=== PATIENT | male | born 1950 | race Caucasian/White ===

== ENCOUNTER → 2017-05-30 | Outpatient (CLI) | payer OTHER, BC ==
[~2017-05-30] MED LIST: ASPIR 8181 MG PO; FLOMAX0.4 MG PO; KEFLEX500 MG PO; PRAVACHOL40 MG PO
== END ==
LOC: RAD 11:39
DX: M50.321 Other cervical disc degeneration at C4-C5 level (principal); M50.322 Other cervical disc degeneration at C5-C6 level

== ENCOUNTER → 2017-07-05 | Outpatient (CLI) | payer OTHER, BC | LOC: MRI 09:48 | DX: M47.892 Other spondylosis, cervical region (principal); M50.322 Other cervical disc degeneration at C5-C6 level ==

== ENCOUNTER → 2018-03-16 | Outpatient (CLI) | payer OTHER, BC ==
[~2018-03-16] VITALS: Ht 182.9 cm; Wt 86.2 kg
[~2018-03-16] MED LIST changes: +TYLENOL EXTRA500 MG PO
--- NOTE | ~2018-03-16 | PATH ---
[facility] [address] [address] PATHOLOGY RPT PROCEDURE Name: ARMANI HARRIS Room #: REG DERRELL Rocío#: [id number] Admission: 03/16/18 Date of : 52 Discharge: Report #: [id number] Path Case #: [id number] [facility] Accession Number: [id number] . 01 Material submitted: . PART A: BX OF GASTRITIS PART B: BX OF DISTAL ESOPHAGUS . 01 Clinical history: . Reflux gastritis, esophagitis . 02 Diagnosis: A. "BX of gastritis", biopsy: - Gastric mucosa with mild reactive changes, minimal chronic inflammation, and focal intestinal type epithelium; no dysplasia seen (see comment). - Negative H. pylori immunohistochemical stain (block A1); control reacted appropriately. . B. "BX of distal esophagus r/o Syed's", biopsy: - Esophageal squamous mucosa and gastric cardiac type mucosa with mild reactive changes, minimal chronic inflammation and rare scattered goblet cells; no dysplasia seen (see comment). QT/03/19/2018 . 02 Comment: Within specimen A, the focal intestinal type epithelium may represent focal intestinal metaplasia in the setting of mild chronic gastritis or a transition to small bowel/duodenal mucosa. . Within specimen B, the rare scattered goblet cells may represent partially sampled or an evolving segment of intestinal metaplasia. No well-formed intestinal metaplasia is identified. Clinica and endoscopic correlation is required. (CLW:duke; 03/19/2018) . 02 Electronically signed: . Hanny Bales MD, Pathologist NPI- [id number] . 01 Gross description: . A. The specimen is received in formalin, labeled "Armani Harris BX of gastritis" and consists of 2 fragments of christina soft tissue measuring 0.4 x 0.3 x 0.1 cm and 0.5 x 0.3 x 0.1 cm. They are entirely submitted in A1. . B. The specimen is received in formalin, labeled "Armani Harris BX distal esophagus rule out Syed's" and consists of multiple fragments of [facility] [address] [place] [address] PATHOLOGY RPT PROCEDURE Name: ARMANI HARRIS NICOLE Room #: REG DERRELL Alford#: [id number] Admission: 03/16/18 Date of : 52 Discharge: Report #: [id number] Path Case #: [id number] christina soft tissue measuring 1.1 x 0.6 x 0.2 cm in aggregate. They are entirely submitted in B1. (SDY; 03/16/2018) SYU/SYU . 02 Pathologist provided ICD-10: K29.50, K20.9 . 02 CPT . 387806, 481604, M02578 Performed at: [address], [place], [place] [id number] MD Clint Thomson MD Phone: [phone] Performed at: [address] [id number] MD Ashlyn Martinez MD Phone: [phone]
--- NOTE | ~2018-03-16 | P ---
[facility] [place] [place] [address] PROCEDURE REPORT Name: RADHA ARTEAGA Room #: REG DERRELL Ines#: [id number] Admission: 03/16/18 Attend Phys: Sinan Steinberg MD Discharge: Date of : 52 Report #: [id number] THIS REPORT FOR: //name// CC: Sinan Hernandez BRIEF HISTORY: The patient is a 67-year-old male who has had recent chest discomfort, was thought to be related reflux disease. He was treated empirically with omeprazole as an outpatient and symptoms have not resolved. PREOPERATIVE DIAGNOSIS: Reflux, not resolved with empiric therapy. POSTOPERATIVE DIAGNOSES: 1. Grade A esophagitis, healing. 2. Mild diffuse gastritis. MEDICATIONS: Deep sedation with propofol per anesthesia. SPECIMEN: 1. Biopsy of the gastric mucosa. 2. Biopsy of GE junction, rule out Syed esophagus. ESTIMATED BLOOD LOSS: 3 mL. PROCEDURE: EGD with biopsy. FINDINGS: Prior to propofol sedation, procedure of upper endoscopy discussed with the patient as well as potential risks and its complications. He indicates he understands and desires to proceed. With the patient in left lateral decubitus position, the Olympus video endoscope was inserted in the cervical esophagus under direct vision without difficulty. Examination of this organ through its entire length revealed normal esophageal mucosa down the squamocolumnar junction. At the squamocolumnar junction, there appeared to be a single 5-6 mm column, which may represent healing esophagitis. I cannot entirely exclude Syed. The squamocolumnar junction was slightly irregular. There may be a focal area of Syed mucosa and Biopsies were obtained. No strictures or masses were seen. A significant hiatus hernia was not seen. Scope was advanced in the stomach, was examined on end view as well as retroflexed views. There was erythema in the antrum, but no ulcers or erosions were seen. The pylorus was unremarkable. Examination of the proximal stomach on end view as well as retroflexed views revealed normal-appearing mucosa. No mass lesions were seen in the cardia of the stomach. The pylorus, duodenal bulb, and postbulbar duodenal sweep were inspected and noted to be within normal limits. At that point, the scope was slowly withdrawn and careful circumferential views confirmed the above finding and the patient tolerated the [address] [address] PROCEDURE REPORT Name: RADHA ARTEAGA Room #: REG [facility] Rocío#: [id number] Admission: 03/16/18 Attend Phys: Sinan Steinberg MD Discharge: Date of : 52 Report #: [id number] procedure well. CONDITION OF THE PATIENT UPON DISCHARGE: Following the procedure, the patient was drowsy, arousal and conversant and will be discharged home when fully ambulatory. INSTRUCTIONS TO THE PATIENT AND FAMILY AT THE TIME OF DISCHARGE: He has what appears to be healing esophagitis. I cannot entirely exclude Syed and biopsies were obtained. We will follow up on biopsies and make further recommendations. At this point in time, since he did not respond to empiric Prilosec treatment, we will have him use pantoprazole 40 mg twice daily for about 6-8 weeks. If he does well, he may reduce the dose of pantoprazole as tolerated once daily or less than 1 daily to control his symptoms. If he does not have complete resolution of symptoms, he should return to see me in followup in the office. He will otherwise return to the care of Dr. Tony Hernandez. <ELECTRONICALLY SIGNED> By: Sinan Steinberg MD 03/19/18 1100 0755 1448 Sinan Steinberg MD /nt
== END | disposition home or self-care (01) ==
LOC: GI 06:27
DX: K29.50 Unspecified chronic gastritis without bleeding (principal); K21.0 Gastro-esophageal reflux disease with esophagitis; Z79.899 Other long term (current) drug therapy; E78.5 Hyperlipidemia, unspecified; Z98.890 Other specified postprocedural states
CPT/HCPCS: 62110; 62900

== ENCOUNTER → 2019-02-06 | Outpatient (CLI) | payer OTHER, BC ==
[~2019-02-06] VITALS: Ht 182.9 cm; Wt 87.1 kg
[~2019-02-06] MED LIST changes: +MEDROLDOSEPACK PO; +PROTONIX40 M1 PO
--- NOTE | ~2019-02-06 | HPC ---
[facility] [address] [address] PAIN MANAGEMENT CONSULTATION Name: RADHA ARTEAGA Room #: REG DERRELL Rocío#: [id number] Admission: 02/06/19 ������������������ Attend Phys: Camacho Ahuja MD Discharge: ������������������ Date of : 52 Report #: [id number] THIS REPORT FOR: //name// CC: Camacho Hernandez DATE OF SERVICE: 02/06/2019 CHIEF COMPLAINT: Neck pain and headache. HISTORY: The patient is a 68-year-old gentleman, who has been referred to the pain clinic for evaluation. The patient states that he has been experiencing some increased pain in the neck area, it involves his back. He was seen in [place]. Because of the neck/headache, he was evaluated. He states that he underwent a study of his carotids. There were no significant findings. The patient had a history of difficulty remembering his 's name and a few other things a few years ago. It was thought that the patient may have had a TIA, but no real findings were confirmed. He states that he likes to run. After a run, he has noted sometimes that his pain becomes more problematic involving the back of his neck and has been of some concern to him and to his . He was told to take a Tylenol. He has noticed that Tylenol use has been helpful in decreasing his pain. His pain resolved after using Tylenol, but he still does have some muscle soreness that remains at this juncture. He rates his pain as 1-2/10. Pain is exacerbated when he is lying down. CURRENT MEDICATIONS: Acetaminophen 500 mg p.r.n. headache, Protonix 40 mg, and Pravachol 40 mg. ALLERGIES: No known drug allergies. PAIN CLINIC ASSESSMENT AND PQRS: 1. History of osteoarthritis. The patient has some arthritic changes in his neck as revealed by a cervical x-ray dated 05/30/2017, which showed degenerative disk disease at C4-C5 and C5-C6 with mild disk space narrowing. The patient is not being treated for rheumatoid arthritis. 2. Pain intensity is 1-2/10. 3. Fall risk. The patient has not fallen in the last 3 months. 4. Blood thinner. The patient is not on a blood thinning medication. 5. Hypertension. The patient is not being treated for hypertension. 6. Opioids greater than 6 weeks. 7. Risk assessment tool, low for opioid use. 8. Functional assessment tool is low. 9. Recreational drug use. The patient denies use of recreational drugs. 10. Tobacco. The patient has never smoked. 11. Alcohol. The patient drinks maybe 1 alcoholic beverage daily. [address] [address] PAIN MANAGEMENT CONSULTATION Name: RADHA ARTEAGA EDGARD [id number] Admission: 02/06/19 ������������������ Attend Phys: Camacho Ahuja MD Discharge: ������������������ Date of : 52 Report #: [id number] PHYSICAL EXAMINATION: GENERAL: The patient is a well-developed, well-nourished white gentleman. He appears his stated age. He is alert and oriented x 3. His affect is appropriate. Speech is fluent. Height is 6 feet 0 inches, weight is 192 pounds, and BMI is 26.0. VITAL SIGNS: Blood pressure is 132/80, pulse is 59, respiratory rate is 16, and room air saturation is 95%. HEENT: Normocephalic, atraumatic. Extraocular eye muscles intact. The patient's is present. NECK: Without adenopathy or JVD. HEART: Regular rate. ABDOMEN: Nontender. Bowel sounds present. EXTREMITIES: Lower extremity muscle strength is judged to be 5/5 for the major muscle groups in the upper extremity. The patient's upper extremity muscle strength is 5/5. The patient notes some soreness in the posterior portion of his neck and in the area of the scapula. IMPRESSION: 1. Neck pain with development of headache, ruled out as a vascular problem with carotid visualization of the vascular system in [place]. 2. Gastroesophageal reflux disease. 3. Benign prostatic hypertrophy. 4. Hypercholesterolemia. RECOMMENDATIONS: We have discussed treatment options with the patient and his . At this juncture, things seem to be going well. He has had a headache, which after taking Tylenol seems to resolve. It is difficult to understand the reasoning for his headaches. At this juncture, it is somewhat episodic. I am not sure that putting on a long-term medication might not cause more problems than good. We have explained to the patient that sometimes runners have found that if they take a nonsteroidal anti-inflammatory medication prior to their run that they have less muscle soreness at the end. The patient could conceivably take Tylenol prior to his run; hopefully, this would decrease the likelihood of that he would have a headache. He does have some GI problems, so he could try a nonsteroidal anti-inflammatory medication as his stomach would tolerate. We will provide the patient with a Medrol Dosepak. Should he start to note some headache discomfort, he could consider trying use of the Medrol Dosepak. It seems like the episodes of pain have been difficult to predict. He will call us if he has any concerns. We would like to thank you for letting to us participate in his care. We hope he continues to improve. ��������������������������������������������� ���������������������������������������� By: ��������������������������������������������� 1830 0059 Camacho Ahuja MD /CINTHYA
[2019-02-06 09:46] VITALS: BP 132/80
--- NOTE | 2019-02-06 09:52 | NUR ---
Pain Clinic Assessment: 1. History of Osteoarthritis: History of Rheumatoid Arthritis: 2. Height: 6 ft. 0 in. 182.9 cm. Weight: 192.0 lb. oz. 87.091 kg. Patient's BMI: 26.0 3. Vital Signs: BP: 132/80 Pulse: 59 Resp: 16 Temp: 02 Sat: 59 ECG Mon: 4. Pain Intensity: 1-2 5. Fall Risk: Dizziness: N Needs help standing or walking: N Fallen in the last 3 months: N Fall risk comments: 6. Patient on Blood Thinner: None 7. History of Hypertension: N 8. Opioid Therapy greater than 6 weeks: N Opiate Contract Signed: 9. Risk Assessment Tool Provided: 10. Functional Assessment Tool: 11. Recreational Drug Use: Never Drug Type: Tobacco Use: Never Smoker Tobacco Type: Amount or Packs/day: How Many Years: Alcohol Use: Yes Frequency: Daily Quant: 1
== END ==
LOC: PAIN 06:50
DX: N40.0 Benign prostatic hyperplasia without lower urinary tract symptoms (principal); E78.00 Pure hypercholesterolemia, unspecified; K21.9 Gastro-esophageal reflux disease without esophagitis; M54.2 Cervicalgia; R51 Headache; Z79.899 Other long term (current) drug therapy

== ENCOUNTER → 2019-03-14 | Outpatient (CLI) | payer OTHER, BC ==
--- NOTE | 2019-03-15 16:39 | P ---
[facility] [address] [address] [place] [address] PROCEDURE REPORT Name: RADHA ARTEAGA Room #: REG DERRELL InesJenny#: [id number] Admission: 03/14/19 ������������������ Attend Phys: Sinan Steinberg MD Discharge: ������������������ Date of : 51 Report #: [id number] THIS REPORT FOR: //name// CC: Sinan Hernandez MD BRIEF HISTORY: The patient is a 68-year-old male known to me with a history of reflux disease and esophagitis. He was seen about a year ago. There was a question of Syed esophagus versus esophagitis in the distal esophagus and biopsies revealed some goblet cells on the biopsy, raising the possibility of Syed esophagus. In addition, he also had biopsies of gastritis, which were negative for H. pylori. However, there was a questionable focal intestinal metaplasia on those biopsies as well. There was question whether or not the gastric biopsies represented true intestinal metaplasia or simply transition from gastric to duodenal mucosa in the prepyloric area. He was treated with twice-daily pantoprazole and subsequently had resolution of symptoms, is now taking 1 daily and has no reflux symptoms or dysphagia symptoms at this time. PREOPERATIVE DIAGNOSES: Questionable prior history of Syed's and questionable prior history of gastrointestinal metaplasia. POSTOPERATIVE DIAGNOSES: 1. Tvwx-xg-sbnaugrk diffuse gastritis. 2. Unremarkable appearing gastroesophageal junction. MEDICATIONS: Deep sedation with propofol per anesthesia. SPECIMENS: 1. Biopsies of antrum. 2. Biopsies of body and fundus of stomach. 3. Biopsies of GE junction. ESTIMATED BLOOD LOSS: 3 mL. PROCEDURE: EGD with biopsy. FINDINGS: Prior to propofol sedation, procedure of upper endoscopy was reviewed with the patient as well as potential risks and its complications. He indicates he understands and desires to proceed. PROCEDURE: With the patient in left lateral decubitus position, the Olympus video endoscope was inserted in the cervical esophagus under direct vision without difficulty. Examination of this organ through its entire length revealed normal esophageal mucosa down the squamocolumnar junction. Squamocolumnar junction was carefully inspected. First of all, there is no evidence of erosive changes and his previously noted esophagitis has cleared. [facility] [address] [place] [address] PROCEDURE REPORT Name: RADHA ARTEAGA Room #: REG [facility] Moni.#: [id number] Admission: 03/14/19 ������������������ Attend Phys: Sinan Steinberg MD Discharge: ������������������ Date of : 51 Report #: [id number] The squamocolumnar junction appeared unremarkable. It appeared to be right at the top of the gastric folds. The squamocolumnar junction was at 42 cm, which would be an expected location in a 6 foot man. Narrow banded imaging and white light imaging were used and no mucosal abnormalities were seen. I suspect that previous biopsies were distorted by esophagitis. The squamocolumnar junction looks fairly typical today and is not overly worrisome with regards to Syed mucosa. However, in view of the previous concerns, biopsies were obtained right at the GE junction. Scope was advanced into the stomach, was examined on end view as well as retroflexed views. The mucosa was intact without ulcerations or erosive changes. There was streaky linear erythema in the antrum. There was mild nodularity to the mucosa in the body and the fundus of the stomach. No mass lesions were seen. Upon retroflexion, no mass lesions were seen in the cardia. Multiple biopsies were obtained of the antrum. Care was taken not to obtain biopsies too close to the pylorus. Multiple biopsies were also obtained of the body and the fundus. The pylorus was unremarkable. Duodenal bulb was unremarkable. Postbulbar duodenal sweep down to third portion was unremarkable. At that point, the scope was slowly withdrawn and careful circumferential views confirmed the above findings. The patient tolerated the procedure well. CONDITION OF THE PATIENT UPON DISCHARGE: Following procedure, the patient drowsy, aroused, conversant and will be discharged home when fully ambulatory. INSTRUCTIONS TO THE PATIENT AND FAMILY AT THE TIME OF DISCHARGE: The patient with questionably abnormal biopsies 1 year ago regarding gastrointestinal metaplasia and the possibility of Syed esophagus. Findings today are not overly impressive with regards to either diagnosis. We follow up on biopsies obtained today. In the meantime, the patient has had resolution of his reflux symptoms and is currently taking one pantoprazole daily. We will discuss further with the patient and advise him to try to reduce to the lowest dose possible to control symptoms. Await biopsies and we will make further recommendations. ��������������������������������������������� <ELECTRONICALLY SIGNED> ���������������������������������������� By: Sinan Steinberg MD ��������������������������������������������� 03/15/19 1639 0821 0926 Sinan Steinberg MD /ольга
--- NOTE | 2019-03-18 17:05 | PATH ---
[facility] [address] [address] PATHOLOGY RPT PROCEDURE Name: RADHA HARRIS Room #: REG DERRELL [place].#: [id number] ������������������ Admission: 03/14/19 ������������������ Date of : 52 Discharge: Report #: [id number] Path Case #: [id number] [facility] Accession Number: [id number] . 01 Material submitted: . PART A: stomach - BX ANTRUM R/O INTESTENAL METAPLASIA OF STOMACH PART B: stomach - BX OF BODY OF FUNDUS R/O INTESTINAL METAPLASIA OF STOMACH. Modifiers: body, fundus PART C: esophagus - BX GE JUNCTION QUESTIONABLE PRIOR HX BARRETTS R/O BARRETTS . 01 Clinical history: . Preop DX: Questionable hx Barretts; questionable hx intestinal metaplasia of stomach, SEE PREVIOUS BIOPSIES Postop DX: Gastritis A. R/O intestinal metaplasia B. R/O intestinal metaplasia C. R/O Barretts . 02 Diagnosis: A. Gastric mucosa, antrum rule out intestinal metaplasia of stomach, endoscopic biopsy: - Moderate reactive gastropathy. - Negative for intestinal metaplasia or atrophy. - Negative for Helicobacter pylori (properly controlled immunohistochemical stain performed). . B. Gastric mucosa, body of stomach rule out intestinal metaplasia of stomach, endoscopic biopsy: - Mild chronic inflammation along with reactive changes. - Negative for intestinal metaplasia or atrophy. - Negative for Helicobacter pylori (properly controlled immunohistochemical stain performed). . C. Gastroesophageal mucosa, GE junction, endoscopic biopsy: - Gastric cardia-type mucosa with moderate chronic inflammation. - Negative for intestinal metaplasia or atrophy. - Squamous mucosa with mild esophagitis. . 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 02 Electronically signed: . Ashlyn Martinez MD, Pathologist NPI- [id number] . 01 Gross description: . [address] [address] PATHOLOGY RPT PROCEDURE Name: RADHA HARRIS Room #: REG CLI [facility].#: [id number] ������������������ Admission: 03/14/19 ������������������ Date of : 52 Discharge: Report #: [id number] Path Case #: [id number] A. Received in formalin labeled "Radha Harris, BX antrum R/O metaplasia," are five segments of christina soft tissue measuring 0.8 x 0.6 x 0.2 cm in aggregate dimensions and ranging from 0.1 to 0.4 cm in maximum dimension. The specimen is submitted entirely in cassette A1. . B. Received in formalin labeled "Radha Harris, LANE body of fundus R/O intestinal metaplasia," are multiple fragments of christina-brown soft tissue measuring measuring 1.0 x 0.6 x 0.2 cm in aggregate dimensions and ranging from 0.1 to 0.4 cm in maximum dimension. The specimen is submitted entirely in cassette B1. . C. Received in formalin labeled "Radha Harris, BX GE junction R/O Barretts," are two segments of christina-brown soft tissue measuring 0.4 x 0.3 x 0.2 cm each in greatest dimensions. The specimen is submitted entirely in cassette C1. ([facility]; 03/15/2019) XDC/XDC . 02 Pathologist provided ICD-10: K31.9, K29.50, K20.9 . 02 CPT . 003706, 280566, 128249, Z15241 Specimen Comment: A courtesy copy of this report has been sent to Specimen Comment: [phone], . Specimen Comment: Report sent to / DR SAMS Performed at: [address] [facility], [place], [place] [id number] MD Clint Thomson MD Phone: [phone] Performed at: [address] [facility] [id number] MD Ashlyn Martinez MD Phone: [phone]
== END | disposition home or self-care (01) ==
LOC: GI 07:02
DX: K29.50 Unspecified chronic gastritis without bleeding (principal); K31.89 Other diseases of stomach and duodenum; K20.9 Esophagitis, unspecified; Z79.899 Other long term (current) drug therapy; Z98.890 Other specified postprocedural states
CPT/HCPCS: 62110; 62900

== ENCOUNTER → 2020-04-06 | Outpatient (CLI) | payer OTHER, BC | LOC: LAB 14:03 | PROVIDERS: ATTEND Family Medicine | DX: R05 Cough (principal); R53.83 Other fatigue; R51 Headache; Z20.828 Contact with and (suspected) exposure to other viral communicable diseases ==

== ENCOUNTER → 2020-05-21 | Outpatient (CLI) | payer OTHER, BC | LOC: SJCVC 09:39 | PROVIDERS: ATTEND Internal Medicine Cardiovascular Disease | DX: R93.1 Abnormal findings on diagnostic imaging of heart and coronary circulation (principal); E78.00 Pure hypercholesterolemia, unspecified; I25.10 Atherosclerotic heart disease of native coronary artery without angina pectoris; Z79.899 Other long term (current) drug therapy; Z82.49 Family history of ischemic heart disease and other diseases of the circulatory system ==

== ENCOUNTER → 2020-05-21 | Outpatient (CLI) | payer OTHER | LOC: CAT 10:36 | PROVIDERS: ATTEND Family Medicine | DX: Z13.6 Encounter for screening for cardiovascular disorders (principal); I25.10 Atherosclerotic heart disease of native coronary artery without angina pectoris; E78.00 Pure hypercholesterolemia, unspecified ==

== ENCOUNTER → 2021-07-19 | Outpatient (CLI) | payer OTHER, BC ==
[~2021-07-19] MED LIST changes: +ASA81BEC PO
== END ==
LOC: LAB 06:01
PROVIDERS: Student in an Organized Health Care Education/Training Program; ATTEND Specialist
DX: Z01.812 Encounter for preprocedural laboratory examination (principal); Z20.822 Contact with and (suspected) exposure to COVID-19

== ENCOUNTER → 2021-07-21 | Outpatient (CLI) | payer OTHER, BC ==
[~2021-07-21] VITALS: Ht 182.9 cm; Wt 87.1 kg
--- NOTE | 2021-07-23 10:47 | P ---
[facility] [place] [address] PROCEDURE REPORT Name: RADHA ARTEAGA Room #: REG DERRELL IbrahimJennyEstradaJenny#: [id number] Admission: 07/21/21 Attend Phys: Kvng Campos Discharge: Date of : 52 Report #: [id number] THIS REPORT FOR: cc: Tony Hernandez MD, Neal A. MD McElhinney, Christian C. MD ~ cc: Tony Hernandez MD DATE OF SERVICE: 07/21/2021 PROCEDURE PERFORMED: Colonoscopy with biopsies. HISTORY OF PRESENT ILLNESS: The patient is a 71-year-old male with a previous history of colon polyps, here for a 5-year followup. He denies any symptoms, no family history of colon cancer. DESCRIPTION OF PROCEDURE: The risks and benefits of the procedure were explained to the patient, those risks including but not limited to bleeding, perforation and the risk of sedation. He understood these risks and gave informed consent. Sedation was given using propofol per Anesthesia. Next, a digital rectal exam was initially performed, which was normal. Next, using a standard Olympus colonoscope, the scope was placed in the patient's anus and advanced under direct vision to the cecum. The overall prep was good. In the cecum, there was a 4 mm sessile polyp. This was removed with cold forceps. The ileocecal valve was normal. In the ascending colon, a 3 mm sessile polyp was noted and removed with cold forceps. In the transverse colon, a 4 mm sessile polyp also removed with cold forceps. The descending and sigmoid colon were normal. The rectal mucosa was normal. On retroflexion, small nonbleeding internal hemorrhoids were noted. The scope was then withdrawn and the procedure terminated. The patient tolerated the procedure well. IMPRESSION: 1. Three small colonic polyps. 2. Small internal hemorrhoids. 3. Otherwise, normal colonoscopy. RECOMMENDATIONS: 1. Await biopsy results. 2. Repeat colonoscopy in 5 years. Thank you for allowing me to participate in his care. <ELECTRONICALLY SIGNED> By: Kvng James MD 07/23/21 1047 1058 1548 Kvng James MD /nt
--- NOTE | 2021-07-23 12:07 | PATH ---
[facility] [address] [address] PATHOLOGY RPT PROCEDURE Name: RADHA HARRIS Room #: REG DERRELL [place].#: [id number] Admission: 07/21/21 Date of : 52 Discharge: Report #: [id number] Path Case #: [id number] [facility] Accession Number: [id number] . 01 Material submitted: . PART A: colon - TRANSVERSE COLON POLYP. Modifiers: transverse PART B: cecum - CECUM POLYP PART C: colon - ASCENDING COLON POLYP. Modifiers: ascending . 01 Clinical history: . COLONOSCOPY . 02 Diagnosis: A. Polyp, transverse colon polyp, endoscopic biopsy: - Tubular adenoma. - Negative for high grade dysplasia. . B. Polyp, cecum polyp, endoscopic biopsy: - Tubular adenoma. - Negative for high grade dysplasia. . C. Polyp, ascending colon polyp, endoscopic biopsy: - Tubular adenoma. - Negative for high grade dysplasia. . (IUV:mml; 07/22/2021) QLM 07/22/2021 1610 Local . 02 Electronically signed: . Ashlyn Martinez MD, Pathologist NPI- [id number] . 01 Gross description: . A. The specimen is submitted in formalin, labeled "Radha Harris, transverse colon polyp". Received are 3 segments of pale christina tissue ranging in size from 0.2 to 0.3 cm in maximum dimensions. The specimen is submitted entirely in cassette A1. . B. The specimen is submitted in formalin, labeled "Radha Harris, cecum polyp". Received are 4 segments of pale christina tissue ranging in size from 0.2 to 0.3 cm in maximum dimensions. The specimen is submitted entirely in cassette B1. . C. The specimen is submitted in formalin, labeled "Radha Harris, ascending colon polyp". Received are 3 segments of pale christina tissue ranging in size from 0.2 to 0.3 cm in maximum dimensions. The specimen is submitted entirely in cassette [place] [address] PATHOLOGY RPT PROCEDURE Name: RADHA HARRIS SUPERIOR Room #: REG [facility].#: [id number] Admission: 07/21/21 Date of : 52 Discharge: Report #: [id number] Path Case #: [id number] ([facility]; 07/21/2021) NRI/NRI 07/21/2021 [facility] Local . 02 Pathologist provided ICD-10: D12.3, D12.0, D12.2 . 02 CPT . 291230, 772317, 611523 Specimen Comment: A courtesy copy of this report has been sent to [phone] Specimen Comment: [id number] Specimen Comment: Report sent to / DR SAMS Performed at: [address] [facility], [place], [place] [id number] MD Frank Rogers MD Phone: [phone] Performed at: [address] [facility] [id number] MD Ashlyn Martinez MD Phone: [phone]
== END | disposition home or self-care (01) ==
LOC: GI 09:47
PROVIDERS: ATTEND Specialist
DX: Z12.11 Encounter for screening for malignant neoplasm of colon (principal); Z86.010 Personal history of colon polyps; D12.0 Benign neoplasm of cecum; D12.2 Benign neoplasm of ascending colon; D12.3 Benign neoplasm of transverse colon; K64.8 Other hemorrhoids; E78.5 Hyperlipidemia, unspecified; K21.9 Gastro-esophageal reflux disease without esophagitis; N40.0 Benign prostatic hyperplasia without lower urinary tract symptoms; Z98.890 Other specified postprocedural states; Z79.899 Other long term (current) drug therapy
CPT/HCPCS: 62110; 62900